=== PATIENT | female | born 1965 | race Caucasian/White ===

== ENCOUNTER → 2016-08-24 | Outpatient (CLI) | payer MEDICARE, OTHER | LOC: HEART 5 11:28 | DX: R91.1 Solitary pulmonary nodule (principal) | CPT/HCPCS: 71020-FX ==

== ENCOUNTER 2020-05-15 15:10 | Emergency (ER) | payer MEDICARE ==
[2020-05-15 16:29] LABS: HEMOGLOBIN 12.3 gm/dl (12.3-15.3); RED BLOOD COUNT 3.82 M/UL (4.00-5.10); WHITE BLOOD COUNT 7.1 K/UL (4.5-11.0)
[2020-05-15 17:05] LABS: BUN/CREATININE RATIO 15 (0-10)
[2020-05-15] MEDS ORDERED: ZOFRAN ODT 4 MG4 MG PO (21:37)
[2020-05-15] MEDS ORDERED: FLAGYL500 MG PO (21:37)
[2020-05-15] MEDS ORDERED: OMNICEF 300 MG300 MG PO (21:37)
[2020-05-15] MEDS ORDERED: PROTONIX40 MG PO (21:37)
== END 2020-05-15 22:24 | disposition home or self-care (01) ==
LOC: ER1 15:10
PROVIDERS: Emergency Medicine
DX: K29.70 Gastritis, unspecified, without bleeding (principal); K82.8 Other specified diseases of gallbladder; Z88.0 Allergy status to penicillin; Z20.822 Contact with and (suspected) exposure to COVID-19
CPT/HCPCS: 71045; 80053; 81001; 82550; 82553; 83605; 83690; 83874; 84484; 85025; 87040; 96365; 96367; 96375; 96376; 99284; C9113; J1335; J2405; J7030; Q9967; U0002

== ENCOUNTER → 2020-05-19 | Outpatient (CLI) | payer MEDICARE ==
[~2020-05-19] MED LIST: FLAGYL500 MG PO; OMNICEF 300 MG300 MG PO; PROTONIX40 MG PO; ZOFRAN ODT 4 MG4 MG PO
== END ==
LOC: US 09:30
DX: R10.11 Right upper quadrant pain (principal); K83.8 Other specified diseases of biliary tract
CPT/HCPCS: 76705

== ENCOUNTER 2021-10-30 13:52 | Emergency (ER) | payer OTHER, MEDICARE | END 2021-10-30 16:38 | disposition home or self-care (01) | LOC: ER1 13:52 | DX: M54.2 Cervicalgia (principal); M54.6 Pain in thoracic spine; Z88.0 Allergy status to penicillin; V43.62XA Car passenger injured in collision with other type car in traffic accident, initial encounter | CPT/HCPCS: 70450; 72125; 72128; 72131; 99284 ==